=== PATIENT | male | born 1960 | race Two or more races ===

== ENCOUNTER 2019-06-07 06:35 | Day surgery (SDC) | payer MEDICARE, MEDICAID ==
[2019-06-07] MEDS ORDERED: IRR STERIL WATER FOR IRR 1000 ML BOTTLE IR ONE (06:36)
[2019-06-07] MEDS ORDERED: BALANCED SALT IRRIG SOLN COMB1 500 ML, EPINEPHRINE-PF 1:1000 0.5 MG IO ONE ×2 (07:00)
[2019-06-07] MEDS ORDERED: KETOROLAC 0.5% OPHT DROP 3 ML BOTTLE ONE (07:04)
[2019-06-07] MEDS ORDERED: CIPROFLOXACIN 0.3% OPHT DROP 2.5 ML BOTTLE ONE (07:04)
[2019-06-07] MEDS ORDERED: CYCLOPENTOLATE 1% OPHT DROP 2 ML BOTTLE ONE (07:05)
[2019-06-07] MEDS ORDERED: TROPICAMIDE 1% OPHT DROP 3 ML BOTTLE ONE (07:05)
[2019-06-07] MEDS ORDERED: PHENYLEPHRINE 2.5% OPHT DROP 2 ML BOTTLE ONE (07:06)
[2019-06-07] MEDS ORDERED: FENTANYL CITRATE 100 MCG/2 ML AMPUL ONE (07:16)
[2019-06-07] MEDS ORDERED: MOXIFLOXACIN HCL 3 ML OPHT DROPS ONE (07:32)
[2019-06-07] MEDS ORDERED: BUPIVACAINE PF 0.5% 30 ML VIAL ONE (07:32)
[2019-06-07] MEDS ORDERED: TIMOLOL MALEATE 0.5% OPHT DROP 5 ML BOTTLE ONE (07:32)
[2019-06-07] MEDS ORDERED: BALANCED SALT IRRIG SOLN COMB2 15 ML IRRIG.SOLN ONE (07:32)
[2019-06-07] MEDS ORDERED: TETRACAINE HCL 0.5% OPHT DROP 2 ML BOTTLE ONE (07:32)
[2019-06-07] MEDS ORDERED: ACETYLCHOLINE CHLORIDE 1% OPHT 1 EA KIT ONE (07:32)
[2019-06-07] MEDS ORDERED: LIDOCAINE-MPF 2% 5 ML VIAL ONE (07:32)
[2019-06-07] MEDS ORDERED: TOBRAMYCIN/DEXAMETH OPHT OINT 3.5 GM TUBE ONE (07:33)
[2019-06-07] MEDS ORDERED: HYALURONATE SODIUM 12.8 MG/0.8 ML DISP.SYRIN ONE (07:33)
[2019-06-07] MEDS ORDERED: HYALURONIDASE,OVINE 200 UNITS/ML VIAL ONE (07:33)
== END 2019-06-07 10:15 | disposition home or self-care (01) ==
LOC: DS 06:35
PROVIDERS: ATTEND Ophthalmology
DX: E11.36 Type 2 diabetes mellitus with diabetic cataract (principal); H25.011 Cortical age-related cataract, right eye; J90 Pleural effusion, not elsewhere classified; K21.9 Gastro-esophageal reflux disease without esophagitis; I13.10 Hypertensive heart and chronic kidney disease without heart failure, with stage 1 through stage 4 chronic kidney disease, or unspecified chronic kidney disease; E11.22 Type 2 diabetes mellitus with diabetic chronic kidney disease; N18.9 Chronic kidney disease, unspecified; F41.9 Anxiety disorder, unspecified; F32.9 Major depressive disorder, single episode, unspecified; D64.9 Anemia, unspecified; Z98.890 Other specified postprocedural states; Z79.899 Other long term (current) drug therapy
CPT/HCPCS: 36415; 66982; 71045; 82962; 84132; 93005; J0171; J3010; J3471; J3490 ×2; J7321; V2632; A4217; A4663; J3590